=== PATIENT | male | born 1985 | race Caucasian/White ===

== ENCOUNTER 2024-09-01 12:09 | Outpatient (REF) | payer BC, SELFPAY ==
[2024-09-01 15:34] LABS: Anion Gap 10.6 mmol/L (3-11); BUN 14 mg/dL (7-18); CO2 26.4 mmol/L (21.0-32.0); CREATININE 1.2 mg/dL (0.70-1.30); Calcium 9.1 mg/dL (8.5-10.1); Calculated LDL 136 mg/dL (<100); Chloride 107 mmol/L (98-107); Cholesterol 224 mg/dL (<200); Estimated GFR 79.38 (mL/min/1.73m2); Glucose 82 mg/dL (74-106); HDL Cholesterol 68 mg/dL (>or=40); Sodium 144 mmol/L (136-145); Triglyceride 101 mg/dL (<150)
== END 2024-09-01 12:10 | disposition home or self-care (01) ==
LOC: NCHCN 12:09
PROVIDERS: PCP Family Medicine; Visit Provider Family Medicine
DX: E78.5 Hyperlipidemia, unspecified (principal); Z00.00 Encounter for general adult medical examination without abnormal findings
CPT/HCPCS: 80048; 80061